=== PATIENT | male | born 1965 | race Two or more races ===

== ENCOUNTER 2017-10-03 13:26 | Emergency (ER) | payer MEDICAID, OTHER ==
[~2017-10-03] VITALS: Ht 162.6 cm; Wt 94.3 kg
[2017-10-03 13:55] VITALS: BP 130/88
== END 2017-10-03 14:36 | disposition home or self-care (01) ==
LOC: ER 13:35
DX: J06.9 Acute upper respiratory infection, unspecified (principal); E11.9 Type 2 diabetes mellitus without complications; I10 Essential (primary) hypertension
CPT/HCPCS: 82962